=== PATIENT | male | born 1985 | race Caucasian/White ===

== ENCOUNTER 2021-11-05 20:13 | Emergency (ER) | payer OTHER ==
[~2021-11-05] VITALS: Ht 165.1 cm; Wt 65.8 kg
[2021-11-05 20:33] VITALS: BP 161/98
[2021-11-05] MEDS ORDERED: IBUPROFEN 600 MG TAB PO ONE (22:45)
--- NOTE | 2021-11-05 22:51 | NUR ---
Dr. Fang examining patient.
[2021-11-05] MEDS ORDERED: BACITRACIN OINT 500 UNITS/GM PKT TP ONE (22:55)
[2021-11-05] MEDS ORDERED: CEPH-588 PO (23:03)
[2021-11-05] MEDS ORDERED: NAPR-54 PO (23:03)
--- NOTE | 2021-11-05 23:09 | NUR ---
Patient discharged with v/s stable. Written and verbal after care instructions given and explainedB DR. HART Patient alert, oriented and verbalized understanding of instructions. Ambulatory with steady gait. All questions addressed prior to discharge. ID band removed. Patient advised to follow up with PMD. Rx of given. Patient educated on indication of medication including possible reaction and side effects. Opportunity to ask questions provided and answered.
== END 2021-11-05 23:09 | disposition home or self-care (01) ==
LOC: MED 20:13
DX: L03.113 Cellulitis of right upper limb (principal); Z79.899 Other long term (current) drug therapy
CPT/HCPCS: 90471; 90715; 99283